=== PATIENT | male | born 1995 | race African-American/Black ===

== ENCOUNTER 2021-08-18 16:03 | Emergency (ER) | payer OTHER ==
[2021-08-18 16:11] VITALS: BP 135/93; PULSE 90; TEMP 97.9; BMI 27.1
[2021-08-18] MEDS ORDERED: LIDOCAINE 1%/EPI 1:100000 (20 ML MULTI DOSE VIAL) ONE (16:30)
[2021-08-18] MEDS ORDERED: LIDOCAINE 1.5%-EPINEPHRINE 1:200,000/PF 30 ML VIAL IJ ONE (16:39)
== END 2021-08-18 17:20 | disposition home or self-care (01) ==
LOC: JER 16:03
PROC: 0H98XZZ Drainage of Buttock Skin, External Approach (ICD-10-PCS; principal; 2021-08-18)
DX: L02.31 Cutaneous abscess of buttock (principal)
CPT/HCPCS: 87070; 87205; 99283-25

== ENCOUNTER 2022-02-20 15:30 | Emergency (ER) | payer OTHER ==
[2022-02-20 15:39] VITALS: BP 130/72; PULSE 93; RESP 19; TEMP 98.6; BMI 27.1
== END 2022-02-20 16:57 | disposition home or self-care (01) ==
LOC: JERFT 15:30 → JER 15:30 → JERFT 16:57
DX: T65.893A Toxic effect of other specified substances, assault, initial encounter (principal)
CPT/HCPCS: 99281-25

== ENCOUNTER 2023-05-25 16:21 | Emergency (ER) | payer SELFPAY ==
[2023-05-25 16:45] VITALS: BMI 27.0
[2023-05-25 17:44] VITALS: BP 114/52; PULSE 57; RESP 20; TEMP 98.1
== END 2023-05-25 18:03 | disposition home or self-care (01) ==
LOC: JERFT 16:21
DX: R22.1 Localized swelling, mass and lump, neck (principal); R59.0 Localized enlarged lymph nodes
CPT/HCPCS: 99282-25